=== PATIENT | female | born 1975 | race Caucasian/White ===

== ENCOUNTER → 2019-12-03 | Outpatient (CLI) | payer OTHER ==
[~2019-12-03] MED LIST: CRUTCH2 USE; CYCL10 PO; HYDACE5 PO; NORT25 PO; Norco 10-325 T1 EACH PO
[2019-12-05 13:08] LABS: HPV 16 Negative (Negative); HPV 18 Negative (Negative); HPV OTHER HR TYPES Negative (Negative)
== END | disposition home or self-care (01) ==
LOC: LAB SHORT 09:20 → LAB 09:20
PROVIDERS: Advanced Practice Midwife
DX: Z01.419 Encounter for gynecological examination (general) (routine) without abnormal findings (principal)
CPT/HCPCS: 87624; G0123

== ENCOUNTER → 2019-12-27 | Outpatient (CLI) | payer OTHER | END | disposition home or self-care (01) | LOC: PLD 08:06 → LAB SHORT 08:06 | DX: N93.9 Abnormal uterine and vaginal bleeding, unspecified (principal) | CPT/HCPCS: 88305 ==

== ENCOUNTER 2020-03-13 11:57 | Day surgery (SDC) | payer OTHER ==
[~2020-03-13] VITALS: Ht 152.4 cm; Wt 68.0 kg
[~2020-03-13 11:57] MED LIST changes: +BUPR150ER PO; +Bisoprolol Fumar5 MG; +CENTRUM SILVER1 EAC2; +CHROMIUM PIC1000 MCG; +Imitrex100 MG; +KELP150 MCG; +LIOT50; +NAPR500; +Salmon Oil 1,01 EACH; +VALA500; +VITAMIN D325 MCG
--- NOTE | 2020-03-13 13:31 | NUR ---
03/13/20 1331 Daniel Ivan FLUID DEFICIT 200 [facility]
== END 2020-03-13 14:26 | disposition home or self-care (01) ==
LOC: ORSCSDS 11:57
PROVIDERS: Obstetrics & Gynecology
PROC: 0UB98ZX Excision of Uterus, Via Natural or Artificial Opening Endoscopic, Diagnostic (ICD-10-PCS; principal; 2020-03-13 13:00)
DX: N93.9 Abnormal uterine and vaginal bleeding, unspecified (principal); N84.0 Polyp of corpus uteri; N97.9 Female infertility, unspecified; N71.9 Inflammatory disease of uterus, unspecified
CPT/HCPCS: J1885; J2250; J2405; J2704; J3010

== ENCOUNTER → 2022-08-24 | Outpatient (CLI) | payer OTHER ==
[~2022-08-24] MED LIST changes: +Nitrofurantoin100 M1 PO; +VALA500 PO; +XANAX0.25 MG PO
== END ==
LOC: LAB 13:40 → LAB SHORT 13:40
DX: R30.0 Dysuria (principal); Z80.41 Family history of malignant neoplasm of ovary
CPT/HCPCS: 36415; 87077; 87086; 87186

== ENCOUNTER 2022-08-26 05:01 | Emergency (ER) | payer OTHER ==
[~2022-08-26] VITALS: Ht 157.5 cm; Wt 70.3 kg
[~2022-08-26 05:01] MED LIST changes: -Nitrofurantoin100 M1 PO; -VALA500 PO; -XANAX0.25 MG PO
[2022-08-26 05:23] LABS: BASOPHILS ABSOLUTE AUTO 0.05 K/mm3 (0.00-0.23); BASOPHILS PERCENT AUTO 1 % (0-2); EOSINOPHILS ABSOLUTE AUTO 0.17 K/mm3 (0.00-0.68); EOSINOPHILS PERCENT AUTO 2 % (0-6); Hemoglobin 11.2 g/dL (11.5-16.0); IMMATURE GRAN ABSOLUTE AUTO 0.03 K/mm3 (0.00-0.10); IMMATURE GRAN PERCENT AUTO 0 % (0-1); LYMPHOCYTES ABSOLUTE AUTO 1.43 K/mm3 (0.84-5.20); LYMPHOCYTES PERCENT AUTO 13 % (21-46); MONOCYTES ABSOLUTE AUTO 0.71 K/mm3 (0.16-1.47); MONOCYTES PERCENT AUTO 7 % (4-13); Mean Corpuscular HGB 24.9 pg (26.0-34.0); Mean Corpuscular HGB Conc 31.1 g/dL (31.5-36.5); Mean Corpuscular Volume 80 fL (80-100); Mean Platelet Volume 9.5 fL (9.1-12.4); NEUTROPHILS ABSOLUTE AUTO 8.61 K/mm3 (1.96-9.15); NEUTROPHILS PERCENT AUTO 78 % (41-73); Platelet Count 292 K/mm3 (150-400); RDW Coefficient Variation 16.3 % (11.7-14.2); RDW Standard Deviation 47.1 fL (35.1-46.3)
[2022-08-26 05:43] LABS: Albumin, Blood 3.4 g/dL (3.4-5.0); Albumin/Globulin Ratio 0.9 (0.8-1.8); Bilirubin, Total 0.3 mg/dL (0.1-1.0); Bun/Creatinine Ratio 15.9 (12.0-20.0); Calcium, Blood 8.6 mg/dL (8.5-10.1); Creatinine, Blood 0.82 mg/dL (0.40-1.00); Globulin, Blood 3.7 g/dL (2.2-4.0); Potassium, Blood 3.9 mmol/L (3.5-5.5); Total Protein, Blood 7.1 g/dL (6.4-8.2)
[2022-08-26] MEDS ORDERED: Nitrofurantoin100 M1 PO (06:46)
[2022-08-26] MEDS ORDERED: XANAX0.25 MG PO (06:46)
[2022-08-26 06:47] LABS: Source, Urine Clean Catch
[2022-08-26] MEDS ORDERED: VALA500 PO (06:47)
[2022-08-26 06:56] LABS: Appearance, Urine Hazy (Clear); Bilirubin, Urine Neg (Neg); Blood, Urine 4+ (Neg); Color, Urine Yellow (P-Yellow); Glucose Qualitative, Urine Neg (Neg); Ketones, Urine 1+ (Neg); Leukocyte Esterase, Urine 3+ (Neg); Nitrite, Urine Pos (Neg); Protein, Urine 3+ (Neg); Urobilinogen, Urine 1+ (Normal)
[2022-08-26 07:08] LABS: White Blood Cells, Urine 50-100 /hpf (0-5)
[2022-08-26 07:09] LABS: Bacteria Many /hpf; Mucus Mod (0-Heavy); Squamous Epithelial Cells Mod /hpf (Few)
== END 2022-08-26 08:53 | disposition home or self-care (01) ==
LOC: ER 05:01
PROVIDERS: Emergency Medicine
DX: N13.2 Hydronephrosis with renal and ureteral calculous obstruction (principal); N39.0 Urinary tract infection, site not specified; Z88.2 Allergy status to sulfonamides; Z88.8 Allergy status to other drugs, medicaments and biological substances; Z79.899 Other long term (current) drug therapy
CPT/HCPCS: 74176; 80053; 81001; 81025; 83690; 85025; 87086; J1885; J2405

== ENCOUNTER → 2023-11-10 | Outpatient (CLI) | payer OTHER ==
[~2023-11-10] MED LIST changes: +Nitrofurantoin100 M1 PO; +VALA500 PO; +XANAX0.25 MG PO
== END | disposition home or self-care (01) ==
LOC: LAB 18:02 → LAB SHORT 18:02
DX: R82.998 Other abnormal findings in urine (principal); Z87.440 Personal history of urinary (tract) infections
CPT/HCPCS: 87086

== ENCOUNTER → 2024-04-05 | Outpatient (CLI) | payer OTHER ==
[2024-04-06 07:42] LABS: Source, Urine Clean Catch
[2024-04-06 09:54] LABS: Bilirubin, Urine Neg (Neg); Blood, Urine 2+ (Neg); Glucose Qualitative, Urine Neg (Neg); Ketones, Urine Neg (Neg); Leukocyte Esterase, Urine 2+ (Neg); Nitrite, Urine Neg (Neg); Protein, Urine Neg (Neg); Specific Gravity, Urine 1.015 (1.003-1.022); Urobilinogen, Urine NORM (Normal)
[2024-04-06 10:03] LABS: Appearance, Urine Clear (Clear); Color, Urine Yellow (P-Yellow)
[2024-04-06 10:04] LABS: Bacteria Few /hpf; Calcium Oxalate Crystals Few /hpf; Squamous Epithelial Cells Rare /hpf (Few)
== END ==
LOC: LAB 16:40 → LAB SHORT 16:40
PROVIDERS: Physician Assistant
DX: N39.0 Urinary tract infection, site not specified (principal)
CPT/HCPCS: 81001; 87077; 87086; 87186